=== PATIENT | female | born 1945 | race Hispanic/Latino ===

== ENCOUNTER 2016-02-21 09:24 | Outpatient (CLI) | payer MEDICARE ==
[2016-02-21 10:03] LABS: Blood Urea Nitrogen 18 mg/dL (7-17)
--- NOTE | 2016-02-21 12:58 | Magnetic Resonance Report ---
MR LUMBAR SPINE WITH AND WITHOUT CONTRAST: HISTORY: Lumbar compression fracture, subacute back pain. TECHNIQUE: Multiple T1 and T2-weighted images were obtained before and after IV gadolinium. Fat suppression technique was utilized. Sagittal STIR imaging. COMPARISON: Lumbar spine films dated 12/22/15. FINDINGS: Compression deformity of L1 is again demonstrated with 50-75% loss of height. There appears to be increased compression since the lumbar spine films on 12/22/15. There is mild diffuse bone marrow edema and enhancement within the L1 vertebral body but no obvious enhancing mass or paraspinal process. There is also a subtle superior endplate deformity at T12 with mild edema and enhancement with less than 10% loss of height. The remaining lumbar vertebra demonstrate normal bone marrow signal. Schmorl's node along the superior end plate of L4 and L5 are noted. The Schmorl's node at the superior endplate of L4 may be acute or subacute. There is mild multilevel disc desiccation and narrowing and facet arthropathy. All levels are affected. T12-L1: L1 compression deformity is again noted with mild retropulsion of the posterior L1 vertebral wall by 6-7 mm. This results in mild spinal canal narrowing measuring 8-9 mm in AP dimension. L1-2: No significant abnormality. L2-3: No significant abnormality. L3-4: No significant abnormality. L4-5: 2 mm anterolisthesis of L4 with respect to L5 is demonstrated. This appears to be secondary to degenerative facet arthropathy. No significant bulging disc, herniation or neural foraminal narrowing. L5-S1: No significant abnormality. Following the administration of IV contrast, there is mild enhancement in the superior endplate of T12, L1 and L4 Schmorl's node. No metastatic pattern is appreciated. IMPRESSION: T12 superior endplate fracture with less than 10% loss of height. L1 compression deformity with 50-75% loss of height and mild retropulsion of the posterior wall, as outlined above. These appear to represent osteoporotic fractures. L4 superior endplate Schmorl's node, [id number]. Degenerative changes. No convincing metastatic pattern to the bones is appreciated.
== END 2016-02-21 09:25 | disposition home or self-care (01) ==
LOC: MRI 09:24
PROVIDERS: ATTEND Radiology Diagnostic Radiology
DX: C34.11 Malignant neoplasm of upper lobe, right bronchus or lung (principal); S32.000A Wedge compression fracture of unspecified lumbar vertebra, initial encounter for closed fracture; M47.896 Other spondylosis, lumbar region; R60.9 Edema, unspecified; X58.XXXA Exposure to other specified factors, initial encounter; Y93.89 Activity, other specified; Y92.89 Other specified places as the place of occurrence of the external cause; Y99.8 Other external cause status
CPT/HCPCS: 36415; 72158; 82565; 84520; A9577

== ENCOUNTER 2016-06-14 08:49 | Outpatient (CLI) | payer MEDICARE ==
--- NOTE | 2016-06-14 12:31 | PET Report ---
PET/CT:06/14/16 08:49:00 CLINICAL: Lung cancer restaging. RADIOPHARMACEUTICAL: 14.1mCi F18-FDG. COMPARISON: 01/26/16 PET/CT TECHNIQUE- Following intravenous injection of F-18 FDG and an approximately 60 minute uptake period, CT and PET images from the mid skull to the upper thighs were acquired with the patient in the fasted state. No contrast was administered. The CT protocol used for this PET CT study is designed for attenuation correction and anatomic localization of PET abnormalities. This senior bi developer CT is not desired to produce and cannot replace, uzrag-xb-jof-art diagnostic CT scans with specific imaging protocols for different body parts and indications. Plasma glucose at the time of this test: 96g/dl. The standardized uptake values (SUV) are normalized to patient body weight and indicate the highest activity concentration (SUV max) in a given disease site. FINDINGS: Brain--Physiologic FDG uptake in the visualized regions of the brain. Neck--Physiologic FDG uptake . Chest--Physiologic FDG uptake in mediastinal blood pool and myocardium. Lungs--Stable right upper lobe scar and partial atelectasis. No suspicious FDG uptake. No pulmonary nodule or mass. Pleura/pericardium--No abnormal uptake. No pleural effusion. Thoracic nodes--No abnormal uptake. Hepatobiliary--No abnormal uptake. Liver background SUV mean, as a reference for comparing FDG studies, is 3.5 compared to 3.4 on the last exam. No liver mass. Spleen--No abnormal uptake. Pancreas--No abnormal uptake. Adrenal Glands--No abnormal uptake. Kidneys/Ureters/Bladder--No abnormal uptake. Abdominopelvic Nodes--No abnormal uptake. Bowel/Peritoneum/Mesentery--No abnormal uptake. Pelvic organs--No abnormal uptake. Bones/Soft Tissues--No abnormal uptake. No suspicious bone lesions. Stable mid-wedge compression fractures of L1 and L4. IMPRESSION- Negative study with no evidence of disease recurrence or metastasis.
== END 2016-06-14 08:50 | disposition home or self-care (01) ==
LOC: PET 08:49
PROVIDERS: ATTEND Internal Medicine Hematology & Oncology
DX: C34.11 Malignant neoplasm of upper lobe, right bronchus or lung (principal); E53.8 Deficiency of other specified B group vitamins; J98.11 Atelectasis; M48.56XA Collapsed vertebra, not elsewhere classified, lumbar region, initial encounter for fracture; Z79.899 Other long term (current) drug therapy
CPT/HCPCS: 78815; 82962; A9552

== ENCOUNTER 2016-10-11 12:24 | Outpatient (CLI) | payer MEDICARE ==
--- NOTE | 2016-10-12 08:20 | PET Report ---
PET SB TO MT SUBSEQUENT: HISTORY: Right lung cancer, right bronchus neoplasm. TECHNIQUE: 13.7 millicuries F-18 FDG was administered intravenously. Noncontrast CT images and PET images were obtained from the skull base to the proximal thighs. Fused images were reviewed on a workstation. The patient's blood glucose level measured 89. COMPARISON: 06/14/16. FINDINGS: BRAIN: physiologic FDG uptake in the imaged brain. NECK: physiologic FDG uptake. MEDIASTINUM: physiologic FDG uptake. LUNGS: Scarring/consolidation in the anterior right upper lobe is unchanged in size and configuration and size since 06/14/16 measuring 5.3 x 3.9 cm in axial plane. This presumably represents radiation changes. Maximum SUV in this area scarring measures 5.4 which has increased from 4.3 on the previous exam. No new hypermetabolic lung mass or nodule. PLEURA/PERICARDIUM: physiologic FDG uptake. THORACIC LYMPH NODES: physiologic FDG uptake. HEPATOBILIARY: physiologic FDG uptake. Mean liver SUV measures 4.1 which has increased from 3.7 on the previous exam. No focal liver mass has developed. PANCREAS: physiologic FDG uptake. SPLEEN: physiologic FDG uptake. ADRENAL GLANDS: physiologic FDG uptake. The 2.2 x 1.8 cm low-density left adrenal nodule is unchanged. Internal density measures 14 Hounsfield units. This is consistent with an adrenal adenoma. KIDNEYS/RENAL COLLECTING SYSTEMS: physiologic FDG uptake. BOWEL/MESENTERY: physiologic FDG uptake. PELVIC VISCERA: physiologic FDG uptake. ABDOMINAL/PELVIC LYMPH NODES: physiologic FDG uptake. MUSCULOSKELETAL: physiologic FDG uptake. IMPRESSION: Negative PET/CT. Stable findings since 06/14/16.
== END 2016-10-11 12:25 | disposition home or self-care (01) ==
LOC: PET 12:24
PROVIDERS: ATTEND Internal Medicine Hematology & Oncology
DX: C34.11 Malignant neoplasm of upper lobe, right bronchus or lung (principal); I50.21 Acute systolic (congestive) heart failure; I48.91 Unspecified atrial fibrillation; Z79.899 Other long term (current) drug therapy
CPT/HCPCS: 78815; 82962; A9552

== ENCOUNTER 2017-01-10 10:04 | Outpatient (CLI) | payer MEDICARE ==
--- NOTE | 2017-01-12 10:31 | PET Report ---
PET SB TO MT SUBSEQUENT: HISTORY: Right mainstem bronchus neoplasm, restaging. TECHNIQUE: 12.2 millicuries F-18 FDG was administered intravenously. Noncontrast CT images and PET images were obtained from the skull base to the proximal thighs. Fused images were reviewed on a workstation. The patient's blood glucose level measured 100. COMPARISON: 10/11/16. FINDINGS: BRAIN: physiologic FDG uptake in the imaged brain. NECK: physiologic FDG uptake. MEDIASTINUM: physiologic FDG uptake. LUNGS: The previously described area of scarring/consolidation in the anterior right upper lobe is stable in size measuring 5.3 x 4.2 cm. Max SUV within this area of consolidation has increased from 5.4 to 6.8. There is a new area of peribronchial infiltration in the posterior right upper lobe measuring up to 5.3 x 4.3 cm in axial plane. Max SUV measures 6.7. There are no discrete masses within this area of consolidation. It is unclear if this represents radiation changes, new infiltrate in the posterior right upper lobe, or less likely lymphangitic spread of tumor. Please correlate with the patient's clinical history and presentation.. PLEURA/PERICARDIUM: physiologic FDG uptake. THORACIC LYMPH NODES: physiologic FDG uptake. HEPATOBILIARY: physiologic FDG uptake. Mean liver SUV measures 4.5. PANCREAS: physiologic FDG uptake. SPLEEN: physiologic FDG uptake. ADRENAL GLANDS: Stable hypometabolic 2.2 cm left adrenal lesion consistent with an adenoma. KIDNEYS/RENAL COLLECTING SYSTEMS: physiologic FDG uptake. BOWEL/MESENTERY: physiologic FDG uptake. PELVIC VISCERA: physiologic FDG uptake. ABDOMINAL/PELVIC LYMPH NODES: physiologic FDG uptake. MUSCULOSKELETAL: physiologic FDG uptake. IMPRESSION: The area of consolidation or scarring in the anterior right upper lobe is stable in size and configuration but demonstrates mild increase in uptake values from 5.4 to 6.8. There is a new area of infiltration in the posterior right upper lobe as outlined above with SUV measuring 6.7. It is unclear if this is related to pneumonia, radiation changes or neoplasm. In my opinion it has the appearance of an infiltrate or progression of radiation changes. Please correlate with the patient's history. No abnormal or suspicious PET uptake is identified in the remainder of the examination.
== END 2017-01-10 10:05 | disposition home or self-care (01) ==
LOC: PET 10:04
PROVIDERS: ATTEND Internal Medicine Hematology & Oncology
DX: C34.11 Malignant neoplasm of upper lobe, right bronchus or lung (principal); R91.8 Other nonspecific abnormal finding of lung field; E53.8 Deficiency of other specified B group vitamins; E27.8 Other specified disorders of adrenal gland; Z79.899 Other long term (current) drug therapy
CPT/HCPCS: 78815; 82962; A9552

== ENCOUNTER 2017-04-25 08:39 | Outpatient (CLI) | payer MEDICARE | END 2017-04-25 08:40 | disposition home or self-care (01) | LOC: PET 08:39 | PROVIDERS: ATTEND Internal Medicine Hematology & Oncology | DX: C34.11 Malignant neoplasm of upper lobe, right bronchus or lung (principal); E53.8 Deficiency of other specified B group vitamins; T82.598A Other mechanical complication of other cardiac and vascular devices and implants, initial encounter; I11.0 Hypertensive heart disease with heart failure; I50.9 Heart failure, unspecified; I48.91 Unspecified atrial fibrillation; Z79.899 Other long term (current) drug therapy | CPT/HCPCS: 78815; 82962; A9552 ==

== ENCOUNTER 2017-11-12 08:31 | Day surgery (SDC) | payer MEDICARE ==
[2017-11-12] MEDS ORDERED: DIPRIVAN 10 MG/ML IV ONE ×2 (11:40)
[2017-11-12] MEDS ORDERED: XYLOCAINE MPF 2% ONE (11:41)
[2017-11-12] MEDS ORDERED: NACL 0.9% 1000 ML 1,000 ML IV SCH (12:00)
--- NOTE | 2017-11-12 12:21 | Short Stay Summary ---
Short Stay Documentation Date of service: 11/12/17 Narrative H&P: The patient presents for EGD for severe epigastric pain and for surveillance colonoscopy for a history of an advanced polyp requiring surgery 3 years ago. - History Past Medical History: atrial fib, cancer (lung cancer), heart failure, hypertension Past Surgical History: bowel surgery (right hemicolectomy 2015 for advanced adenomatous polyp) Social history: no smoking, no alcohol abuse, no prescription drug abuse - Allergies and Medications Current Medications: Allergies No Known Allergies Allergy (Verified 08/11/13 06:53) Home Medications Medication Instructions Recorded Confirmed Last Taken Type RX: Acetaminophen [Acetaminophen 650 mg PO Q4H PRN #15 tablet 09/02/17 11/12/17 Unknown Rx TAB] RX: Atorvastatin (Nf) [Lipitor] 10 mg PO QHS #30 09/02/17 11/12/17 11/11/17 Rx Rivaroxaban [Xarelto] 15 mg PO DAILY #30 tablet 09/02/17 11/12/17 11/10/17 Rx RX: Metoprolol [Lopressor TAB] 0.5 tab PO BID 11/12/17 11/12/17 11/09/17 History Active Medications Sodium Chloride (Nacl 0.9% 1000 Ml) 1,000 mls @ 50 mls/hr IV DIRECT HERNÁN Last Admin: 11/12/17 11:30 Dose: 50 mls/hr - Physical exam General appearance: no acute distress, well-nourished Integumentary: no rash, no growths, no abnormal pigmentation HEENT: Atraumatic, PERRLA, EOMI, Mucous membr. moist/pink Lungs: Clear to auscultation, Normal air movement Breasts: deferred Heart: Regular rate, Normal S1, Normal S2, No murmurs Gastrointestinal: normoactive bowel sounds, no tenderness, no distended, no masses, no organomegaly Female Genitourinary: deferred Rectal Exam: normal exam-external/orifice, normal rectal tone, no mass Extremities: no ischemia, pulses intact, pulses symmetrical, No edema, normal temperature, normal color, Full ROM Neurological: Normal gait, Normal speech, Strength at 5/5 X4 ext, Normal tone, Sensation intact, Cranial nerves 3-12 NL - Brief post op/procedure progress note Date of procedure: 11/12/17 Procedure: see dictated reports. Findings: see dictated reports Estimated blood loss: none Pathology: list (1. duodenal bulb biopsies 2. Antral biopsies) Specimen disposition: to lab Condition: stable - Disposition Condition at discharge: Good Disposition: DC-[id number] TO HOME OR SELFCARE - Discharge Diagnoses (1) Epigastric pain Status: Acute (2) History of adenomatous polyp of colon Status: Acute (3) Lung cancer Status: Chronic Comment: per dr bruno (4) Paroxysmal atrial fibrillation Status: Chronic Short Stay Discharge Plan Follow up with: CANDY STEVEN MD [Primary Care Provider] - 7 Days
--- NOTE | 2017-11-12 12:24 | Anesthesia Day of Surgery ---
Anesthesia Day of Surgery - Day of Surgery Patient Examined: Yes Patient H&P Reviewed: Yes Patient is NPO: Yes
--- NOTE | 2017-11-12 12:24 | Anesthesia Consultation ---
Anesthesia Consult and Med Hx Date of service: 11/12/17 - Airway Anesthetic Teeth Evaluation: Poor, Chipped ROM Head & Neck: Adequate Mental/Hyoid Distance: Adequate Mallampati Class: Class II Intubation Access Assessment: Probably Good - Pulmonary Exam CTA: Yes - Cardiac Exam Cardiac Exam: RRR - Pre-Operative Health Status ASA Pre-Surgery Classification: ASA3 Proposed Anesthetic Plan: MAC - Pulmonary Hx Smoking: Yes (QUIT IN 2013) Hx Sleep Apnea: Yes - Cardiovascular System Hx Hypertension: Yes Hx Cardia Arrhythmia: Yes (Parox. A. Fib on Xarelto (currently in SR)) Hx Heart Murmur: Yes - Hematic Hx Anemia: Yes - Other Systems Hx Cancer: Yes (lung 2013 )
--- NOTE | 2017-11-12 12:28 | Operative Report ---
Operative Report Operative Report: Date of procedure: 11/12/2017 Procedure: Esophagogastroduodenoscopy with biopsies of the stomach and duodenum Preprocedure diagnosis: Severe epigastric pain Post procedure diagnosis: Extensive ulceration of the duodenal bulb. Normal stomach and esophagus Endoscopist: Dr. Serna Anesthesia: Monitored anesthesia care per anesthesia department Medications: Propofol per anesthesia Estimated blood loss: 0 After careful discussion of the nature and purpose of the procedure as well as details the technique risks benefits and alternatives consent was obtained. The patient was placed in the left lateral decubitus position and medicated per anesthesia. The tip of the [employer] [place] EQ 570 video scope was passed per orum under direct vision into the esophagus and advanced into the stomach and descending duodenum. The descending duodenum is normal. The duodenal bulb was extensively ulcerate. Multiple biopsies were taken from the duodenal bulb to exclude opportunistic pathogens. There was no mass effect to suggest cancer. The pylorus was symmetrical and normal. The scope was withdrawn into the stomach and the stomach then gently insufflated with air. The antrum was normal. Multiple antral biopsies were taken to assess for H. pylori infection. The stomach was further insufflated and the scope was then retroflexed and partially withdrawn. The cardia, fundus, and body of the stomach were within normal limits and easily distensible.The scope was then withdrawn in the forward position. The esophagogastric junction was at 38 cm. The esophageal body was normal throughout. The procedure was was well tolerated and the patient was observed in recovery. Impressions: Severe ulceration of the duodenal bulb consistent with peptic disease. Rule out opportunistic pathogens in light of her history of malignancy. Rule out H. pylori infection. Plan: Await pathology report. Begin omeprazole 40 mg daily. The patient call the office in 10 days to discuss the pathology findings and further management. Electronically signed: Morgan Serna MD
--- NOTE | 2017-11-12 12:31 | Operative Report ---
Operative Report Operative Report: Date of procedure: 11/12/2017 Preprocedure diagnosis: History of an advanced colon polyp requiring right hemicolectomy 3 years ago. Post procedure diagnosis: Right hemicolectomy status. Moderate diverticulosis of the left colon. Procedure: Colonoscopy to the ileocolonic anastomosis in the transverse colon. Endoscopist: Dr. Serna Anesthesia: Monitored anesthesia care per anesthesia department Estimated blood loss: 0 Medications: Monitored anesthesia care. See separate report by anesthesia for details. After careful discussion of the nature and purpose of the procedure as well as details of the technique risks benefits and alternatives the patient gave consent. Please see recent history and physical from the office. The patient was placed in the left lateral decubitus position and medicated per anesthesia. A rectal exam was performed sphincter tone was normal there were no masses palpable. The gumin 570 scope was passed transanally and advanced under continuous direct vision without difficulty to the ileocolonic anastomosis in the transverse colon. The colon was well prepared. The transverse colon, descending colon, and sigmoid colon revealed moderately extensive diverticulosis but otherwise were normal. The rectum was normal on forward and retroflexed views. The procedure was well-tolerated overall and the patient was observed in recovery. Conclusions: Right hemicolectomy status. Moderately severe diverticulosis of the remaining left colon. Plan: Repeat colonoscopy in 3-5 years. Signed electronically: Morgan Serna M.D.
[2017-11-12 12:58] VITALS: BP 107/61
== END 2017-11-12 08:32 | disposition home or self-care (01) ==
LOC: GIO 08:31
PROVIDERS: ATTEND Internal Medicine Gastroenterology
DX: Z12.11 Encounter for screening for malignant neoplasm of colon (principal); K26.9 Duodenal ulcer, unspecified as acute or chronic, without hemorrhage or perforation; K57.30 Diverticulosis of large intestine without perforation or abscess without bleeding; K29.80 Duodenitis without bleeding; K29.50 Unspecified chronic gastritis without bleeding; G47.33 Obstructive sleep apnea (adult) (pediatric); I48.0 Paroxysmal atrial fibrillation; I11.0 Hypertensive heart disease with heart failure; I50.9 Heart failure, unspecified; Z79.899 Other long term (current) drug therapy; Z79.01 Long term (current) use of anticoagulants; Z90.49 Acquired absence of other specified parts of digestive tract; Z86.010 Personal history of colon polyps; Z87.891 Personal history of nicotine dependence; Z85.118 Personal history of other malignant neoplasm of bronchus and lung; Z98.890 Other specified postprocedural states
CPT/HCPCS: 43239; 44388; 88305; 88312; 88342; J2704; J7030

== ENCOUNTER 2017-11-14 08:40 | Outpatient (CLI) | payer MEDICARE ==
--- NOTE | 2017-11-15 09:15 | PET Report ---
PET/CT:11/14/17 08:40:00 CLINICAL: Lung cancer restaging. RADIOPHARMACEUTICAL: 11.94mCi F18-FDG. COMPARISON: 04/25/17 PET/CT and additional PET/CT going back to 10/15/13 TECHNIQUE- Following intravenous injection of F-18 FDG and an approximately 60 minute uptake period, CT and PET images from the mid skull to the upper thighs were acquired with the patient in the fasted state. No contrast was administered. The CT protocol used for this PET CT study is designed for attenuation correction and anatomic localization of PET abnormalities. This stamping die maker CT is not desired to produce and cannot replace, aqxdm-hd-ymd-art diagnostic CT scans with specific imaging protocols for different body parts and indications. Plasma glucose at the time of this test: 99g/dl. The standardized uptake values (SUV) are normalized to patient body weight and indicate the highest activity concentration (SUV max) in a given disease site. FINDINGS: Brain--Physiologic FDG uptake in the visualized regions of the brain. Neck--Physiologic FDG uptake . Chest--Physiologic FDG uptake in mediastinal blood pool and myocardium. Lungs--Persistent right upper lobe atelectasis but decreased FDG uptake within SUV 3.4 compared to 4.4 on the last exam. A new triangular-shaped right upper lobe nodular opacity measures approximately 1.6 x 1.5 cm within SUV 1.8. No other lung nodule or mass. Pleura/pericardium--No abnormal uptake. Thoracic nodes--No abnormal uptake. Hepatobiliary--No abnormal uptake. Liver background SUV mean, as a reference for comparing FDG studies, is 3.2 compared to 2.7 on the last exam. No liver mass. Spleen--No abnormal uptake. Pancreas--No abnormal uptake. Adrenal Glands--No abnormal uptake. Kidneys/Ureters/Bladder--No abnormal uptake. Abdominopelvic Nodes--No abnormal uptake. Bowel/Peritoneum/Mesentery--No abnormal uptake. Pelvic organs--No abnormal uptake. Bones/Soft Tissues--No abnormal uptake and no suspicious bone lesions. Other findings: Intense FDG uptake in the first and second portions of the duodenum with SUV 10.0. On CT, there is either a duodenal mass or intraluminal material measuring 110 Hounsfield units. The uptake in the duodenum exceeds the FDG uptake in the small and large bowel. IMPRESSION-1. Persistent right upper lobe atelectasis with decreased FDG uptake. 2. A new 1.6 cm right upper lobe nodular opacity is of uncertain significance. 3. Probably benign FDG uptake in the proximal duodenum which may reflect duodenitis or peptic ulcer disease.
== END 2017-11-14 08:41 | disposition home or self-care (01) ==
LOC: PET 08:40
PROVIDERS: ATTEND Internal Medicine Hematology & Oncology
DX: C34.11 Malignant neoplasm of upper lobe, right bronchus or lung (principal); I48.91 Unspecified atrial fibrillation; I50.31 Acute diastolic (congestive) heart failure; Z87.891 Personal history of nicotine dependence; Z79.899 Other long term (current) drug therapy
CPT/HCPCS: 78815; 82962; A9552

== ENCOUNTER 2018-05-22 09:17 | Outpatient (CLI) | payer MEDICARE ==
--- NOTE | 2018-05-26 09:59 | PET Report ---
PET/CT:05/22/18 09:17:00 CLINICAL: Lung cancer restaging. RADIOPHARMACEUTICAL: 13.617mCi F18-FDG. COMPARISON: 02/13/18 PET/CT TECHNIQUE- Following intravenous injection of F-18 FDG and an approximately 60 minute uptake period, CT and PET images from the mid skull to the upper thighs were acquired with the patient in the fasted state. No contrast was administered. The CT protocol used for this PET CT study is designed for attenuation correction and anatomic localization of PET abnormalities. This custom tailor CT is not desired to produce and cannot replace, fnibq-mx-ufr-art diagnostic CT scans with specific imaging protocols for different body parts and indications. Plasma glucose at the time of this test: 81g/dl. The standardized uptake values (SUV) are normalized to patient body weight and indicate the highest activity concentration (SUV max) in a given disease site. FINDINGS: Brain--Physiologic FDG uptake in the visualized regions of the brain. Neck--Physiologic FDG uptake in mucosal structures. No mass or lymphadenopathy. Chest--Physiologic FDG uptake in mediastinal blood pool and myocardium. Lungs--No abnormal uptake. Stable right upper lobe atelectasis and stable right upper lobe lung nodule with minimal FDG uptake and SUV 1.3 compared to 1.5. It measures 1.8 x 1.4 cm compared to 1.7 x 1.4 cm. No other lung nodule or mass. Pleura/pericardium--No abnormal uptake. Thoracic nodes--No abnormal uptake. Hepatobiliary--No abnormal uptake. Liver background SUV mean, as a reference for comparing FDG studies, is 3.0 compared to 2.4 on the last exam. No liver mass. Spleen--No abnormal uptake. Pancreas--No abnormal uptake. Adrenal Glands--No abnormal uptake. Stable 2.0 x 1.4 cm left adrenal nodule with minimal FDG uptake. Kidneys/Ureters/Bladder--No abnormal uptake. Abdominopelvic Nodes--No abnormal uptake. Bowel/Peritoneum/Mesentery--The previously described intense FDG uptake in the proximal duodenum has resolved. Stable mild perisigmoid stranding. However, focal FDG uptake in the sigmoid colon is decreased with SUV 6.0 compared to 10.0 on the last exam. Pelvic organs--No abnormal uptake. Bones/Soft Tissues--No abnormal uptake and no suspicious bone lesions. Stable chronic lumbar wedge compression fractures. IMPRESSION- 1. Stable disease with minimal FDG uptake in the right upper lobe lung nodule. 2. No new disease. 3. Resolution of duodenitis and improved sigmoid diverticulitis.
== END 2018-05-22 09:18 | disposition home or self-care (01) ==
LOC: PET 09:17
PROVIDERS: ATTEND Internal Medicine Hematology & Oncology
DX: C34.11 Malignant neoplasm of upper lobe, right bronchus or lung (principal); K57.92 Diverticulitis of intestine, part unspecified, without perforation or abscess without bleeding; R91.1 Solitary pulmonary nodule; E53.8 Deficiency of other specified B group vitamins; T82.598A Other mechanical complication of other cardiac and vascular devices and implants, initial encounter; E78.00 Pure hypercholesterolemia, unspecified; I11.0 Hypertensive heart disease with heart failure; I50.9 Heart failure, unspecified; Z90.49 Acquired absence of other specified parts of digestive tract
CPT/HCPCS: 78815; 82962; A9552

== ENCOUNTER 2018-07-21 08:55 | Outpatient (CLI) | payer MEDICARE ==
--- NOTE | 2018-07-21 11:03 | Mammography Report ---
BILATERAL DIGITAL SCREENING MAMMOGRAM with CAD: 07/21/18 08:55:00 CLINICAL: Routine screening.History of lung cancer. COMPARISON:None. FINDINGS: The breasts are almost entirely fatty.A left upper inner [id number]. No mass, architectural distortion or suspicious calcifications. IMPRESSION: No mammographic evidence of malignancy. BI-RADS CATEGORY: 1 - - Negative RECOMMENDATION: Routine mammographic screening in one year. COMMENT: Patient follow-up letters are generated by our [employer] application.
== END 2018-07-21 08:56 | disposition home or self-care (01) ==
LOC: MAMMO 08:55
PROVIDERS: ATTEND Internal Medicine
DX: Z12.31 Encounter for screening mammogram for malignant neoplasm of breast (principal)
CPT/HCPCS: 77067

== ENCOUNTER 2018-09-04 13:43 | Outpatient (CLI) | payer MEDICARE ==
--- NOTE | 2018-09-05 09:29 | PET Report ---
POSITRON EMISSION TOMOGRAPHY WITH CT FOR ATTENUATION CORRECTION AND ANATOMIC CORRELATION ONLY Indication: Restaging lung cancer Comparison: 05/22/2018 Technique: Study was performed from skull base to mid thigh using 13.118 millicuries of F18-FDG injec [place] into the right hand at 1453 hours with scan initiation time of 1521 hours. Just prior to injectio n, serum glucose level was measured at 82 mg/dl. Low-resolution CT without contrast was performed. Al l CT scans at this location are performed using CT dose reduction for ALARA by means of automated exp osure control. CT findings: The irregular mass in the right apical area is not significant changed and has a diamete r of 1.7 cm. Chronic right middle lobe atelectatic changes continue. No new pulmonary nodules or mass es are seen. Ectasia of the thoracic aorta is unchanged. Small cyst is again seen in the left kidney. Small indeterminate lesion arising from the upper pole of the right kidney posteriorly is unchanged. The thickened appearance of the sigmoid colon in an area of diverticulosis with adjacent stranding i s unchanged without obvious complication. PET findings: The irregular mass in the right apical area shows no significant metabolic activity. No hypermetabolic lesions are seen in the thorax. Only a small amount of metabolic activity is seen in the area of thickening in the sigmoid colon similar to prior study with maximal SUV of 6.5. No other lesions are seen. IMPRESSION: 1. Stable appearance of right apical lesion which does not show significant metabolic activity. I do not see obvious evidence of active neoplasia at this time. 2. The appearance of sigmoid diverticulitis is unchanged from prior study. Only a small amount of met abolic activity is noted in this area similar to prior study. Signer Name: Ventura Mckee MD Signed: 09/05/2018 9:25 AM Workstation Name: [id number]
== END 2018-09-04 13:44 | disposition home or self-care (01) ==
LOC: PET 13:43
PROVIDERS: ATTEND Internal Medicine Hematology & Oncology
DX: C34.11 Malignant neoplasm of upper lobe, right bronchus or lung (principal); E53.8 Deficiency of other specified B group vitamins; E78.00 Pure hypercholesterolemia, unspecified; I11.0 Hypertensive heart disease with heart failure; I50.9 Heart failure, unspecified
CPT/HCPCS: 78815; 82962; A9552

== ENCOUNTER 2018-11-21 10:00 | Outpatient (CLI) | payer MEDICARE ==
--- NOTE | 2018-11-21 13:38 | Cat Scan Report ---
CT CHEST WITH CONTRAST INDICATION / CLINICAL INFORMATION: C34.11)Malignant neoplasm of upper lobe, right bronchus or lung. TECHNIQUE: Axial CT images were obtained through the chest after 60 cc Omnipaque 300 IV contrast. Sagittal and c oronal reformatted images. All CT scans at this location are performed using CT dose reduction for AL SIDNEY by means of automated exposure control. COMPARISON: PET/CT dated 09/04/2018 FINDINGS: HEART: Stable borderline to mild cardiomegaly. Trace pericardial effusion. THORACIC AORTA: No significant abnormality. MEDIASTINUM and JAMIL: No mediastinal mass or adenopathy. The thyroid gland, tracheobronchial tree and esophagus are unremarkable. LUNGS: Chronic scarring in the medial right upper lobe is unchanged and may represent radiation nam es. A 1.5 cm density is identified in the right apical region which is unchanged since the previous PET/CT. The remainder the lungs are clear. No new suspicious nodule or mass. Underlying emphysematous changes are stable. PLEURA: No significant pleural effusion. No pneumothorax. SKELETAL SYSTEM: Osteopenia is evident. Multilevel degenerative changes are noted in the spine. No canales spicious bony lesion. ADDITIONAL FINDINGS: None. IMPRESSION: Stable findings since the PET/CT dated 09/04/2018. Stable appearance of the 1.5 cm density near the ri ght apical region which was hypometabolic on recent PET. Radiation changes to the medial right upper lobe are suspected. No new thoracic mass or nodule. Stable borderline to mild cardiomegaly. Trace pericardial effusion. Signer Name: Maurisio Viera Jr, MD Signed: 11/21/2018 1:33 PM Workstation Name: [id number]
--- NOTE | 2018-11-21 14:14 | Cat Scan Report ---
CT ABDOMEN AND PELVIS WITH CONTRAST HISTORY: E53.8)Deficiency of other specified B group vitamins. Restaging of right lung cancer COMPARISON: PET/CT dated 09/04/2018. CT abdomen pelvis dated 08/29/2017. TECHNIQUE: Axial CT images were obtained through the abdomen and pelvis after 100 cc of Omnipaque 300 intravenously. Sagittal and coronal reformatted images. All CT scans at this location are performed using CT dose reduction for ALARA by means of automated exposure control. FINDINGS: CT ABDOMEN: Liver: No significant abnormality. Biliary: No significant abnormality. Spleen: No significant abnormality. Unenlarged. Pancreas: No significant abnormality. Adrenals: A 1.8 cm soft tissue density left adrenal lesion is identified which is unchanged since the CT abdomen dated 08/29/2017. The right adrenal gland is normal. Kidneys: No significant abnormality. 1 cm exophytic cyst from the superior right kidney is noted. 3.3 cm exophytic cyst from the inferior pole of the left kidney is noted. Lymphatics: No pathologic adenopathy is identified. Vasculature: Moderate calcific plaques are noted in the abdominal aorta and common iliac arteries. No aneurysm or high-grade stenosis. Bowel/Peritoneum: No evidence for bowel obstruction or focal inflammation. Mild diverticulosis of the sigmoid colon is noted. The appendix is not confidently identified. CT PELVIS: : 1.4 cm left ovarian cyst is identified. The uterus and right adnexa are unremarkable. The bladder and distal ureters are within normal limits. Osseous Structures: Osteopenia. No evidence for acute fracture or suspicious bony lesion. Chronic ktaelynn earing compression deformity at L1 is noted. Additional Findings: None IMPRESSION: No convincing evidence for metastatic disease to the abdomen or pelvis. 1.8 cm left adrenal nodule which is unchanged since CT abdomen dated 08/29/2017. Probable adenoma. Left ovarian cyst. Sigmoid diverticulosis. Simple bilateral renal cysts. Osteopenia. Chronic appearing L1 compression deformity. Degenerative changes in the spine. Signer Name: Maurisio Viera Jr, MD Signed: 11/21/2018 2:10 PM Workstation Name: [id number]
== END 2018-11-21 10:01 | disposition home or self-care (01) ==
LOC: CT 10:00
PROVIDERS: ATTEND Internal Medicine Hematology & Oncology
DX: C34.11 Malignant neoplasm of upper lobe, right bronchus or lung (principal); E53.8 Deficiency of other specified B group vitamins; T82.598A Other mechanical complication of other cardiac and vascular devices and implants, initial encounter
CPT/HCPCS: 36415; 71260; 74177; 82565; 84520; Q9967

== ENCOUNTER 2019-03-11 10:41 | Outpatient (CLI) | payer MEDICARE ==
[2019-03-11 11:40] LABS: Blood Urea Nitrogen 16 mg/dL (7-17)
--- NOTE | 2019-03-11 13:58 | Cat Scan Report ---
CT chest with contrast INDICATION : Metastatic lung cancer. TECHNIQUE: 100 mL of intravenous contrast administered. All CT scans at this location are performed using CT dose reduction for ALARA by means of automated exposure control. COMPARISON: 11/21/2018, 09/04/2018. FINDINGS: There is slight increased size of a previously noted right apical mass. This currently measures 1.9 x 1.2 cm (axial image 109). This previously measured 1.5 x 1.1 cm on 11/21/2018 CT. There is persisten t consolidation in the medial right upper lobe. The appearance may reflect chronic scarring and radia tion treatment related changes. The appearance is not significantly changed from most recent CT. No d efinite new pulmonary mass or nodule. No new acute focal pulmonary consolidation or edema. No pathologically enlarged mediastinal or axillary lymph nodes. Left chest Port-A-Cath is noted. Stab le anterior wedge deformity of T6 vertebral body with unchanged irregularity of T6 vertebral body. Th e appearance likely reflects site of remote injury. No evidence of new osseous destructive lesion Heart is within normal limits in terms of size. No evidence of pericardial effusion. No mediastinal o r axillary lymphadenopathy. Stable anterior wedge deformity of T6 vertebral body with unchanged irregularity of T6 vertebral body . The appearance likely reflects site of remote injury. No evidence of new osseous destructive lesion Please see dedicated CT of the abdomen and pelvis performed concurrently for findings below the level of the diaphragm. IMPRESSION: Increased size of now 1.9 cm right apical mass. This previously measured 1.5 cm on 11/21/2018 CT. Stable appearance of consolidation in the medial right upper lobe. The appearance is suspected to rep resent an area of scarring/radiation change. Signer Name: Sundar Braun MD Signed: 03/11/2019 1:54 PM Workstation Name: [id number]
--- NOTE | 2019-03-11 14:08 | Cat Scan Report ---
CT ABDOMEN AND PELVIS WITH CONTRAST HISTORY: Metastatic lung cancer. COMPARISON: 11/21/2018, 09/04/2018. TECHNIQUE: CT images of the abdomen and pelvis were obtained following administration of intravenous contrast. All CT scans at this location are performed using CT dose reduction for ALARA by means of automated exposure control. CONTRAST: 100 ml of intravenous contrast administered. Oral contrast was also utilized. FINDINGS: Please see dedicated CT of the chest performed concurrently for findings above the level of the diaph ragm. A 1.9 cm left adrenal soft tissue nodule is not significantly changed. Stable 3.3 cm exophytic cyst arising from the inferior pole of the left kidney and 1 cm cyst arising from the posterior aspect of the right upper kidney. The liver, spleen, pancreas, right adrenal glan d, and gallbladder are unremarkable. No pathologically enlarged lymph nodes within the abdomen and pelvis. Mild sigmoid diverticulosis is again noted. Gastrointestinal tract shows no evidence of bowel wall th ickening or pathologic distention. No free intraperitoneal gas or fluid. The appendix is not identified, but there are no inflammatory changes seen in the region of the cecum . Urinary bladder is unremarkable. There is subtle hypodensity within the portal vein and the superior mesenteric vein. This is felt to represent mixing artifact and not thrombus given its vague appearance and contrast noted distally. Stable chronic appearing compression fracture at L1 vertebral body. No new acute osseous injury. A 1. 2 cm sclerotic lesion within the left aspect of L2 vertebral body is not significantly changed. IMPRESSION: Stable appearance of abdomen and pelvis with unchanged 1.9 cm left adrenal gland soft tissue nodule. Signer Name: Sundar Braun MD Signed: 03/11/2019 2:04 PM Workstation Name: [id number]
== END 2019-03-11 10:42 | disposition home or self-care (01) ==
LOC: CT 10:41
PROVIDERS: ATTEND Internal Medicine Hematology & Oncology
DX: K57.30 Diverticulosis of large intestine without perforation or abscess without bleeding (principal); N28.1 Cyst of kidney, acquired; C34.11 Malignant neoplasm of upper lobe, right bronchus or lung
CPT/HCPCS: 36415; 71260; 74177; 82565; 84520; Q9967

== ENCOUNTER 2019-04-16 07:14 | Outpatient (CLI) | payer MEDICARE ==
--- NOTE | 2019-04-16 13:31 | PET Report ---
PET/CT HISTORY: C34.11. Restaging of right lung cancer TECHNIQUE: The patient's fasting blood glucose was 108. The patient weighed 173 lbs. The patient w as injected with 11.14 mCi of FDG in the right wrist at 0901 hours and imaging was started at 0946 ho urs. The patient was imaged from the skull base to the thighs. All CT scans at this location are per formed using CT dose reduction for ALARA by means of automated exposure control. Images were reviewed on a workstation. COMPARISON: 09/04/2018 FINDINGS: IMAGED BRAIN: [Physiologic FDG uptake] NECK: [Physiologic FDG uptake] CHEST WALL: [Physiologic FDG uptake] MEDIASTINUM: [Physiologic FDG uptake] LUNGS: [Physiologic FDG uptake]. Stable scarring and chronic atelectasis in the right upper lobe. St able 1.7 cm hypometabolic lesion near the right apex. No new or suspicious pulmonary lesion has devel oped. HEPATOBILIARY: [Physiologic FDG uptake]. Liver SUV measures 5.5. PANCREAS: [Physiologic FDG uptake SPLEEN: [Physiologic FDG uptake] KIDNEYS/BLADDER: [Physiologic FDG uptake] ADRENAL GLANDS: [Physiologic FDG uptake] GI/MESENTERY: [Physiologic FDG uptake] PELVIC VISCERA: [Physiologic FDG uptake] LYMPH NODES: [Physiologic FDG uptake] OSSEOUS STRUCTURES: [Physiologic FDG uptake] ADDITIONAL FINDINGS: [None] IMPRESSION: Stable findings since 09/04/2018. No evidence for disease recurrence or metastasis. Signer Name: Maurisio Viera Jr, MD Signed: 04/16/2019 1:26 PM Workstation Name: [id number]
== END 2019-04-16 07:15 | disposition home or self-care (01) ==
LOC: PET 07:14
PROVIDERS: ATTEND Radiology Radiation Oncology
DX: C34.11 Malignant neoplasm of upper lobe, right bronchus or lung (principal)
CPT/HCPCS: 78815; 82962; A9552

== ENCOUNTER 2019-08-20 09:11 | Outpatient (CLI) | payer MEDICARE ==
--- NOTE | 2019-08-20 12:32 | PET Report ---
PET/CT HISTORY: C34.11 ,RT SIDE LUNG CA. TECHNIQUE: The patient's fasting blood glucose was 96. The patient weighed 170 lbs. The patient wa s injected with 14.1 mCi of FDG in the left hand at 1003 hours and imaging was started at 1048 hours. The patient was imaged from the skull base to the thighs. All CT scans at this location are perform ed using CT dose reduction for ALARA by means of automated exposure control. Images were reviewed on a workstation. COMPARISON: 04/16/2019 FINDINGS: IMAGED BRAIN: Physiologic FDG uptake. NECK: Physiologic FDG uptake. CHEST WALL: Physiologic FDG uptake. MEDIASTINUM: Physiologic FDG uptake. LUNGS: Stable right upper lobe scarring/radiation changes and 1.7 cm right apical lung density since the previous exam. No hypermetabolic activity is appreciated. No new lung lesion.. HEPATOBILIARY: Physiologic FDG uptake. PANCREAS: Physiologic FDG uptake. SPLEEN: Physiologic FDG uptake. KIDNEYS/BLADDER: Physiologic FDG uptake. ADRENAL GLANDS: Physiologic FDG uptake. GI/MESENTERY: Physiologic FDG uptake. PELVIC VISCERA: Physiologic FDG uptake. LYMPH NODES: Physiologic FDG uptake. OSSEOUS STRUCTURES: Physiologic FDG uptake. ADDITIONAL FINDINGS: None. IMPRESSION: Negative PET CT. Stable findings since 04/16/2019 exam. Signer Name: Maurisio Viera Jr, MD Signed: 08/20/2019 12:28 PM Workstation Name: [id number]
== END 2019-08-20 09:12 | disposition home or self-care (01) ==
LOC: PET 09:11
PROVIDERS: ATTEND Internal Medicine Hematology & Oncology
DX: C34.11 Malignant neoplasm of upper lobe, right bronchus or lung (principal)
CPT/HCPCS: 78815; 82962; A9552

== ENCOUNTER 2020-02-18 08:41 | Outpatient (CLI) | payer MEDICARE ==
--- NOTE | 2020-02-18 11:48 | PET Report ---
PET/CT HISTORY: C34.11. Restaging of right lung cancer TECHNIQUE: The patient's fasting blood glucose was 81. The patient weighed 170 lbs. The patient wa s injected with 14.4 mCi of FDG in the left wrist at 0923 hours and imaging was started at 1026 hours . The patient was imaged from the skull base to the thighs. All CT scans at this location are perfor med using CT dose reduction for ALARA by means of automated exposure control. Images were reviewed on a workstation. COMPARISON: 08/20/2019 FINDINGS: IMAGED BRAIN: [Physiologic FDG uptake. NECK: Physiologic FDG uptake. CHEST WALL: Physiologic FDG uptake. MEDIASTINUM: Physiologic FDG uptake. LUNGS: Physiologic FDG uptake. Stable scarring or radiation changes in the anterior right upper lobe . Stable 1.7 cm right apical lung density. No new hypermetabolic activity in the lungs. HEPATOBILIARY: Physiologic FDG uptake. PANCREAS: Physiologic FDG uptake. SPLEEN: Physiologic FDG uptake. KIDNEYS/BLADDER: Physiologic FDG uptake. ADRENAL GLANDS: Physiologic FDG uptake. Stable 1.8 cm left adrenal adenoma. GI/MESENTERY: Physiologic FDG uptake. PELVIC VISCERA: Physiologic FDG uptake. LYMPH NODES: Physiologic FDG uptake. OSSEOUS STRUCTURES: Physiologic FDG uptake. Osteopenia. Stable multilevel degenerative changes in th e spine. No suspicious bony lesion. ADDITIONAL FINDINGS: None. IMPRESSION: Negative PET CT. Stable findings since 08/20/2019 exam. Signer Name: Maurisio Viera Jr, MD Signed: 02/18/2020 11:44 AM Workstation Name: [id number]
== END 2020-02-18 08:42 | disposition home or self-care (01) ==
LOC: PET 08:41
PROVIDERS: ATTEND Internal Medicine Hematology & Oncology
DX: C34.11 Malignant neoplasm of upper lobe, right bronchus or lung (principal); D35.01 Benign neoplasm of right adrenal gland
CPT/HCPCS: 78815; 82962; A9552

== ENCOUNTER 2020-10-27 09:36 | Outpatient (CLI) | payer MEDICARE ==
--- NOTE | 2020-10-27 15:06 | PET Report ---
PET-CT SCAN INDICATION / CLINICAL INFORMATION: C34.11. Lung cancer STAGING: Restaging TECHNIQUE: Tumor imaging, positron emission tomography (PET) with concurrently acquired computed tomography (CT) for attenuation correction and anatomical localization; Skull Base to Mid Thigh DOSE: 14.5 mCi F-18 FDG was administered IV per protocol in the left antecubital fossa GLUCOSE: Patient's blood glucose at that time was 85 mg/dL. UPTAKE TIME: PET scan performed approximately 60 minutes after radiotracer administration. CT SCAN DESCRIPTION: No oral or IV contrast.. All CT scans at this location are performed using CT do se reduction for ALARA by means of automated exposure control. COMPARISON: PET scan from 02/18/2020 FINDINGS: Background right hepatic lobe activity has a maximum SUV of 4.5. HEAD/NECK: No abnormal radiotracer uptake in the neck. Physiologic tonsillar and salivary gland activ ity noted. CHEST: Scarring/atelectasis versus radiation change again seen in the right upper lobe region. The ad jacent small subsolid nodule measuring roughly 1.5 cm is also stable. Physiologic cardiac activity no [place]. ABDOMEN / PELVIS: No abnormal radiotracer uptake in the abdomen. Physiologic stomach and bowel activi ty noted. SKELETAL STRUCTURES: No hypermetabolic bone lesions. ADDITIONAL FINDINGS: No significant additional findings. IMPRESSION: 1. No metastatic disease identified. Stable exam. Signer Name: Osmin Escoto MD Signed: 10/27/2020 3:01 PM Workstation Name: [id number]
== END 2020-10-27 09:37 | disposition home or self-care (01) ==
LOC: PET 09:36
PROVIDERS: ATTEND Internal Medicine Hematology & Oncology
DX: C34.11 Malignant neoplasm of upper lobe, right bronchus or lung (principal)
CPT/HCPCS: 78815; 82962; A9552

== ENCOUNTER 2021-01-17 09:36 | Outpatient (CLI) | payer MEDICARE ==
--- NOTE | 2021-01-17 10:41 | Mammography Report ---
BILATERAL DIGITAL SCREENING MAMMOGRAM WITH CAD HISTORY: Screening mammogram. TECHNIQUE: Routine digital mammographic imaging performed. This examination was interpreted with joan talbot benefit of Computer-aided Detection analysis. COMPARISON: 07/21/2018. FINDINGS: Breast Density: predominantly fatty breast parenchymal pattern. Digital CC and MLO views demonstrate no mammographic evidence of malignancy. Left chest Port-A-Cath obscures evaluation of the upper inner posterior left breast. IMPRESSION: No mammographic evidence of malignancy. If the clinical examination remains stable, recommend bilate ral mammogram in approximately one year. BIRADS 1: Negative. FURTHER INFORMATION: According to the [employer], yearly mammograms are recommend ed starting at age 40 and continuing as long as a woman is in good health. Clinical Breast Exams shou ld be part of a periodic health exam-about every 3 years for women in their 20s and 30s and every yea r for women 40 and over. Breast self exam is an option for women starting in their 20s. Any breast ch dawson noted on a breast self exam should be reported promptly to the patient's healthcare provider. [place] east MRI is recommended for women with an approximately 20-25% or greater lifetime risk of breast can cer, including women with a strong family history of breast or ovarian cancer and women who have been treated for Hodgkin's disease. A negative Mammography report should not discourage follow up or biopsy of a clinically significant f inding and/or abnormality. Dense breast tissue may obscure small neoplasms. The patient will be entered into a reminder system with a target due date for the next screening mamm ogram. Signer Name: Sundar Braun MD Signed: 01/17/2021 10:37 AM Workstation Name: [id number]
== END 2021-01-17 09:37 | disposition home or self-care (01) ==
LOC: MAMMO 09:36
PROVIDERS: ATTEND Internal Medicine
DX: Z12.31 Encounter for screening mammogram for malignant neoplasm of breast (principal)
CPT/HCPCS: 77067

== ENCOUNTER 2021-05-11 09:09 | Outpatient (CLI) | payer MEDICARE ==
--- NOTE | 2021-05-11 12:42 | PET Report ---
PET/CT HISTORY: C34.11. Restaging of lung cancer TECHNIQUE: The patient's fasting blood glucose was 96. The patient weighed 174 lbs. The patient wa s injected with 12.7 mCi of FDG in the left antecubital fossa at 1003 hours and imaging was started a t 1117 hours. The patient was imaged from the skull base to the thighs. All CT scans at this [facility] are performed using CT dose reduction for ALARA by means of automated exposure control. Images were reviewed on a workstation. COMPARISON: 10/27/2020 FINDINGS: IMAGED BRAIN: Physiologic FDG uptake. NECK: Physiologic FDG uptake. CHEST WALL: Physiologic FDG uptake. MEDIASTINUM: Physiologic FDG uptake. LUNGS: Physiologic FDG uptake. Scarring or radiation changes in the right perihilar/right upper lobe region are again noted and unchanged. Stable adjacent 1.5 cm opacity near the right lung apex. No ne w pulmonary lesion or mass. HEPATOBILIARY: Physiologic FDG uptake. PANCREAS: Physiologic FDG uptake. SPLEEN: Physiologic FDG uptake. KIDNEYS/BLADDER: Physiologic FDG uptake. ADRENAL GLANDS: Physiologic FDG uptake. GI/MESENTERY: Physiologic FDG uptake. PELVIC VISCERA: Physiologic FDG uptake. LYMPH NODES: Physiologic FDG uptake. OSSEOUS STRUCTURES: Physiologic FDG uptake. ADDITIONAL FINDINGS: None. IMPRESSION: Negative PET CT. Stable findings since 10/27/2020. No evidence for disease recurrence or metastasis. Signer Name: Maurisio Viera Jr, MD Signed: 05/11/2021 12:36 PM Workstation Name: [id number]
== END 2021-05-11 09:10 | disposition home or self-care (01) ==
LOC: PET 09:09
PROVIDERS: ATTEND Internal Medicine Hematology & Oncology
DX: C34.11 Malignant neoplasm of upper lobe, right bronchus or lung (principal); Z79.899 Other long term (current) drug therapy
CPT/HCPCS: 78815; 82962; A9552

== ENCOUNTER 2021-10-26 08:25 | Outpatient (CLI) | payer MEDICARE ==
--- NOTE | 2021-10-26 12:02 | PET Report ---
PET SB TO MT SUBSEQUENT INDICATION / CLINICAL INFORMATION: Restaging lung carcinoma. TRACER: F-18 FDG 12.68 mCi IV injection on 10/26/2021. Blood glucose is 96 mg/dL. TECHNIQUE: Following injection of the above tracer and appropriate delay, PET imaging was performed from the [facility] ll base to the upper thighs. CT imaging was performed same time for the purposes of anatomic localiza tion. All CT examinations at this institution utilize dose reduction: Automated exposure control. COMPARISON: 05/11/2021. FINDINGS: HEAD/NECK: No abnormal uptake. CHEST: No abnormal uptake. ABDOMEN/PELVIS: No abnormal uptake. UPPER LEGS: No abnormal uptake. INCIDENTAL CT FINDINGS: Chronic volume loss with associated soft tissue and bronchiectasis at the right upper zone with small adjacent soft tissue nodule measuring 1.5 cm is unchanged. IMPRESSION: Negative for suspicious metabolic activity. Signer Name: Bc Ortiz MD Signed: 10/26/2021 11:57 AM Workstation Name: [id number]
== END 2021-10-26 08:26 | disposition home or self-care (01) ==
LOC: PET 08:25
PROVIDERS: ATTEND Internal Medicine Hematology & Oncology
DX: C34.11 Malignant neoplasm of upper lobe, right bronchus or lung (principal)
CPT/HCPCS: 78815; 82962; A9552